=== PATIENT | female | born 1985 | race Caucasian/White ===

== ENCOUNTER 2020-01-21 09:10 | Emergency (ER) | payer MEDICAID ==
[~2020-01-21] VITALS: Ht 162.6 cm; Wt 45.0 kg
[2020-01-21] MEDS ORDERED: LIDOCAINE 0.5% HCL 50 ML VIAL ONE (09:33)
--- NOTE | 2020-01-21 10:00 | NUR ---
assumed care of pt, BIB RA, PT WAS FOUND IN PARK S/P OVERDOSE ON METHAMPHETAMINE 5 MG VERSED GIVEN IN FIELD, pt on monitor, nad noted, -sob, pending md mazariegos
[2020-01-21 11:42] LABS: APPEARANCE,URINE Cloudy (CLEAR); BILIRUBIN,URINE Negative (NEGATIVE); BLOOD, URINE Trace-intact Ery/uL (NEGATIVE); COLOR,URINE Yellow (YELLOW); KETONES,URINE Negative (NEGATIVE); LEUKOCYTE ESTERASE ,URINE Negative (NEGATIVE); NITRITE, URINE Negative (NEGATIVE); PROTEIN,URINE Negative (NEGATIVE); UGLUCOSE Negative (NEGATIVE); UROBILINOGEN,URINE 0.2 EU/dL (0.2)
[2020-01-21 11:53] LABS: BASOPHILS % (AUTO) 0.3 % (0.0-2.0); EOSINOPHILS % (AUTO) 0.8 % (0.0-6.0); HEMATOCRIT 39 % (33-45); HEMOGLOBIN 12.8 g/dL (11.5-14.8); LYMPHOCYTES # (AUTO) 2.5 /CMM (0.8-4.8); LYMPHOCYTES % (AUTO) 22.5 % (20.0-44.0); MEAN CORPUSCULAR HGB CONC 33 g/dl (31.0-36.0); MEAN CORPUSCULAR VOLUME 82 fL (82-100); MONOCYTES # (AUTO) 0.9 /CMM (0.1-1.30); MONOCYTES % (AUTO) 7.9 % (2.0-12.0); NEUTROPHILS # (AUTO) 7.5 /CMM (1.8-8.9); NEUTROPHILS % (AUTO) 68.5 % (43.0-81.0); PLATELET COUNT (AUTO) 418 /CMM (150-450); RED BLOOD CELL COUNT(AUTO) 4.74 MIL/uL (4.0-5.2); WHITE BLOOD COUNT (AUTO) 10.9 K/uL (4.3-11.0)
[2020-01-21 12:01] LABS: CALCIUM, SERUM 9.2 mg/dL (8.5-10.1); CARBON DIOXIDE 30 mmol/L (21-32); CHLORIDE 105 mmol/L (98-107); CREATININE 0.6 mg/dL (0.6-1.3); GLUCOSE 133 mg/dL (74-106); POTASSIUM 3.6 mmol/L (3.5-5.1); SODIUM SERUM 140 mmol/L (136-145); UREA NITROGEN, BLOOD 16 mg/dL (7-18)
[2020-01-21 12:06] LABS: ALANINE AMINOTRANSFERASE 29 U/L (12-78); ALBUMIN 3.5 g/dL (3.4-5.0); ALCOHOL, BLOOD < 3 mg/dL (0-0); ALKALINE PHOSPHATASE 113 U/L (46-116); ASPARTATE AMINOTRANSFERASE 23 U/L (15-37); BILIRUBIN,DIRECT 0.1 mg/dL (0.0-0.2); BILIRUBIN,TOTAL 0.3 mg/dL (0.2-1.0); TOTAL PROTEIN, SERUM 6.9 g/dL (6.4-8.2)
[2020-01-21 12:07] LABS: ACETAMINOPHEN 0 ug/ml (10-30); SALICYLATE 0.9 mg/dL (2.8-20.0)
[2020-01-21 12:24] LABS: BACTERIA,URINE None seen /HPF (None Seen); MUCUS,URINE Many /LPF (None Seen); SQUAMOUS EPITHELIAL CELL,UR Moderate /HPF (None Seen); URINE AMORPHOUS URATE Many /HPF (None Seen)
--- NOTE | 2020-01-21 13:13 | NUR ---
kelley at bedside for eval
--- NOTE | 2020-01-21 13:50 | NUR ---
pt is not answering question approprietly, per kelley hold stays until re-eval
[2020-01-21] MEDS ORDERED: OLANZAPINE 10 MG VIAL IM ONE ×2 (14:18→14:30)
--- NOTE | 2020-01-21 15:00 | NUR ---
Patient is resting comfortably in bed with eyes closed. Easily aroused. VSS
--- NOTE | 2020-01-21 19:00 | NUR ---
pt evaluated by second supervisor parking lot; pt not coherent for evaluation, dr. leon aware.
--- NOTE | 2020-01-21 21:05 | NUR ---
Cristian donahue in ED - 01/21/20 at 2347 by TIMI REPORT GIVEN TO BREA PACHECO AT [facility]. PT WILL BE TRANSPORTED
--- NOTE | 2020-01-21 23:30 | NUR ---
pt asleep, remains comfortable, sitter at bedside, vss, -sob, not in any distress at this time.
[2020-01-22] MEDS ORDERED: OLANZAPINE 10 MG VIAL IM ONE ×3 (00:30→04:55)
--- NOTE | 2020-01-22 01:30 | NUR ---
PT ON CONSTANT OBSERVATIN W/ SITTER AT BEDSIDE. PT ASLEEP, VSS, NO ACUTE DISTRESS NOTED AT THIS TIME. WILL CONTINUE TO MONITOR
--- NOTE | 2020-01-22 03:13 | NUR ---
ALISA TOSCANOW PAGED FOR PSYCH EVAL.
--- NOTE | 2020-01-22 04:16 | NUR ---
Pt evaluated by back shoe cutter Arthur TOSCANOW and pt not appropriate for discharge at this time. er md made aware.
--- NOTE | 2020-01-22 06:07 | NUR ---
Patient is resting comfortably in bed with eyes closed. Easily aroused. VSS
--- NOTE | 2020-01-22 07:58 | NUR ---
Sleeping- easily awakened/opens eyes NON communicative refusing to answer to questions
--- NOTE | 2020-01-22 08:49 | NUR ---
BREAKFAST TRAY PROVIDED, PATIENT TOLERATED PO WELL.
--- NOTE | 2020-01-22 11:04 | NUR ---
PATIENT IN BED ASLEEP, EASILY AROUSED. VSS. WILL CONTINUE TO MONITOR ACCORDINGLY
--- NOTE | 2020-01-22 12:42 | NUR ---
LUNCH TRAY PROVIDED. TOLERATED PO WELL.
--- NOTE | 2020-01-22 14:01 | NUR ---
PATIENT IN BED ASLEEP, HOOKED TO MONITOR, VSS. KEPT SAFE AND COMFORTABLE. WILL CONTINUE TO MONITOR ACCORDINGLY.
--- NOTE | 2020-01-22 16:18 | NUR ---
PATIENT IN BED ASLEEP, EASILY AROUSABLE BY VOICE. VSS. WILL CONTINUE TO MONITOR.
--- NOTE | 2020-01-22 17:43 | NUR ---
NORMA ECHEVERRIA [phone]
--- NOTE | 2020-01-22 22:38 | NUR ---
Patient is resting comfortably in bed. Easily aroused. VSS.
--- NOTE | 2020-01-23 01:56 | NUR ---
Pt provided with sesar
--- NOTE | 2020-01-23 02:46 | NUR ---
Patient is resting comfortably in bed. Easily aroused. VSS.
--- NOTE | 2020-01-23 03:56 | NUR ---
PT ACCEPTED AT [facility] ACCEPTING MD CAMERON PT WILL GO TO UNIT 2 PHONE NUMBER FOR REPORT PLEASE CALL FOR REPORT AFTER SHIFT CHANGE.
--- NOTE | 2020-01-23 04:03 | NUR ---
PT AMBULATORY TO THE BATHROOM WITH STEADY GAIT NOTED. PT AAOX4 NO ACUTE DISTRESS NOTED, RESP EVEN AND UNLABORED.
--- NOTE | 2020-01-23 04:16 | NUR ---
TRANSPORT CALLED ([facility]) ETA [phone]
--- NOTE | 2020-01-23 07:26 | NUR ---
ASSESSED PT ON BED ASLEEP EASILY AROUSABLE, AAOX3, NOT IN RESPIRATORY DISTRESS, V/S STABLE, KEPT RESTED AND COMFORTABLE, WILL CONTINUE TO MONITOR.
--- NOTE | 2020-01-23 07:56 | NUR ---
FOOD TRAY PROVIDED.
--- NOTE | 2020-01-23 08:08 | NUR ---
REPORT GIVEN TO ALEJANDRO DOWD OF [facility] FOR [facility].
--- NOTE | 2020-01-23 10:09 | NUR ---
REPORT GIVEN TO EMT FOR PT TRASNFER TO [facility].
[2020-01-23 10:25] VITALS: BP 103/59
== END 2020-01-23 10:26 ==
LOC: EDBD 09:12 → ER 09:12
DX: F15.10 Other stimulant abuse, uncomplicated (principal)
CPT/HCPCS: 36415; 80048; 80076; 80305; 80307; 80329; 81001; 84703; 85025; 87086; 96372 ×2; 99285; G0480; J3490 ×3; J7030; 81000-TC

== ENCOUNTER 2020-02-07 10:29 | Emergency (ER) | payer MEDICAID ==
[~2020-02-07] VITALS: Ht 152.4 cm; Wt 45.4 kg
--- NOTE | 2020-02-07 10:32 | NUR ---
NENO RA 62 "Homeless/Drug abuse/Meth. Uncooperative/agitated/restless", to er bed 15, hooked to monitor, warm blanket provided, awaiting md mazariegos.
--- NOTE | 2020-02-07 10:33 | NUR ---
dr peoples at bedside
--- NOTE | 2020-02-07 10:40 | NUR ---
Cristian donahue in ED - 02/07/20 at 1922 by MISTY NENO PEÑA 62 "Homeless/Drug abuse/Meth. Uncooperative/agitated/restless", to er bed 15, hooked to monitor, warm blanket provided, awaiting md mazariegos.
[2020-02-07] MEDS ORDERED: ZIPRASIDONE MESYLATE 20 MG/VIAL VIAL IM ONE ×2 (10:46→11:30)
[2020-02-07] MEDS ORDERED: WATER FOR INJECTION,STERILE 10 ML ONE (10:48)
[2020-02-07] MEDS ORDERED: LORAZEPAM INJ 2 MG/ML VIAL ONE (10:48)
[2020-02-07] MEDS ORDERED: LORAZEPAM INJ 2 MG/ML VIAL IV ONE (11:00)
[2020-02-07 11:07] LABS: BASOPHILS # (AUTO) 0.1 /CMM (0.0-0.2); BASOPHILS % (AUTO) 0.6 % (0.0-2.0); EOSINOPHILS % (AUTO) 0.2 % (0.0-6.0); HEMATOCRIT 38 % (33-45); HEMOGLOBIN 12.3 g/dL (11.5-14.8); LYMPHOCYTES # (AUTO) 2.5 /CMM (0.8-4.8); LYMPHOCYTES % (AUTO) 19.4 % (20.0-44.0); MEAN CORPUSCULAR HGB CONC 33 g/dl (31.0-36.0); MEAN CORPUSCULAR VOLUME 83 fL (82-100); NEUTROPHILS # (AUTO) 9.4 /CMM (1.8-8.9); NEUTROPHILS % (AUTO) 71.8 % (43.0-81.0); PLATELET COUNT (AUTO) 444 /CMM (150-450); RED BLOOD CELL COUNT(AUTO) 4.57 MIL/uL (4.0-5.2); WHITE BLOOD COUNT (AUTO) 13.1 K/uL (4.3-11.0)
[2020-02-07 11:15] LABS: CALCIUM, SERUM 8.7 mg/dL (8.5-10.1); CARBON DIOXIDE 26 mmol/L (21-32); CHLORIDE 105 mmol/L (98-107); CREATININE 0.5 mg/dL (0.6-1.3); GLUCOSE 130 mg/dL (74-106); POTASSIUM 3.3 mmol/L (3.5-5.1); SODIUM SERUM 141 mmol/L (136-145); UREA NITROGEN, BLOOD 13 mg/dL (7-18)
[2020-02-07 11:28] LABS: ACETAMINOPHEN < 2 ug/ml (10-30); ALANINE AMINOTRANSFERASE 53 U/L (12-78); ALBUMIN 3.7 g/dL (3.4-5.0); ALCOHOL, BLOOD < 3 mg/dL (0-0); ALKALINE PHOSPHATASE 113 U/L (46-116); ASPARTATE AMINOTRANSFERASE 41 U/L (15-37); BILIRUBIN,DIRECT 0.1 mg/dL (0.0-0.2); BILIRUBIN,TOTAL 0.5 mg/dL (0.2-1.0); SALICYLATE 0.9 mg/dL (2.8-20.0); TOTAL PROTEIN, SERUM 7.1 g/dL (6.4-8.2)
[2020-02-07] MEDS ORDERED: LORAZEPAM INJ 2 MG/ML VIAL IM ONE (11:30)
--- NOTE | 2020-02-07 12:32 | NUR ---
patient not able to provide urine sample, made aware
--- NOTE | 2020-02-07 14:21 | NUR ---
patient in bed asleep, tucked in blanket, arousable by voice but will go back to sleep immediately. hooked to monitor, will continue to monitor accordingly
--- NOTE | 2020-02-07 16:42 | NUR ---
patient in bed asleep, arousable by voice. hooked to monitor, will continue to monitor accordingly
--- NOTE | 2020-02-07 18:22 | NUR ---
patient in bed asleep, tucked in blanket, arousable by voice. hooked to monitor, will continue to monitor accordingly
--- NOTE | 2020-02-07 19:19 | NUR ---
ASSESSED PT ON BED ASLEEP, EASILY AROUSABLE, NOT IN RESPIRATORY DISTRESS ,V/S STABLE, KEPT RESTED AND COMFORTABLE, WILL CONTINUE TO MONITOR.
--- NOTE | 2020-02-07 20:34 | NUR ---
PT AWAKE, AAOX4. AMBULATORY WITH STEADY GAIT. MEDICALLY CLEARED FOR DISCHARGE BY DR. DALLAS. PT PROVIDED WITH FOOD AND CLOTHES PRIOR TO DISCHARGE. Patient given written and verbal discharge instructions. Patient verbalizes understanding of instructions. Patient is ambulatory with steady gait. Refuses offer of skilled nursing placement. Patient given list of available shelters in surrounding area.
[2020-02-07 20:45] VITALS: BP 124/77
== END 2020-02-07 20:46 | disposition home or self-care (01) ==
LOC: ER 10:32
DX: F19.10 Other psychoactive substance abuse, uncomplicated (principal); R45.1 Restlessness and agitation
CPT/HCPCS: 36415; 80048; 80076; 80307; 80329; 84702; 85025; 96372 ×2; 99285; G0480; J2060; J3486

== ENCOUNTER 2020-02-08 02:47 | Emergency (ER) | payer MEDICAID ==
[~2020-02-08] VITALS: Ht 152.4 cm; Wt 43.1 kg
--- NOTE | 2020-02-08 03:02 | NUR ---
PT CAME IN FOR BACK PAIN AND ANXIETY. PT AAOX4, VSS, RR EVEN AND UNLABORED ON RA W NAD NOTED. PT CONNECTED TOT HE MONITOR AND POX. WILL CONTINUE TO MONITOR FOR SAFETY
[2020-02-08] MEDS ORDERED: IBUPROFEN 600 MG TABLET PO ONE ×2 (03:29→03:30)
[2020-02-08] MEDS ORDERED: LORAZEPAM 1 MG TABLET ONE (03:29)
[2020-02-08] MEDS ORDERED: LORAZEPAM 1 MG TABLET PO ONE (03:30)
--- NOTE | 2020-02-08 05:06 | NUR ---
Patient given written and verbal discharge instructions. Patient verbalizes understanding of instructions. Patient is ambulatory with steady gait. Refuses offer of long-term placement. Patient given list of available shelters in surrounding area.
--- NOTE | 2020-02-08 05:07 | NUR ---
SECURITY AT BEDSIDE.
[2020-02-08 05:08] VITALS: BP 119/81
== END 2020-02-08 05:12 | disposition home or self-care (01) ==
LOC: ER 02:49
DX: M54.5 Low back pain (principal); F41.9 Anxiety disorder, unspecified; G89.29 Other chronic pain; Z59.0 Homelessness